=== PATIENT | female | born 1960 | race African-American/Black ===

== ENCOUNTER 2021-05-08 07:20 | Emergency (ER) | payer OTHER ==
[~2021-05-08 07:20] MED LIST: ALBU18HF2 IH; ALBUTEROL; P20 PO; SULF-165 PO
== END 2021-05-08 08:17 | disposition left against medical advice (07) ==
LOC: ER 07:20
DX: Z53.21 Procedure and treatment not carried out due to patient leaving prior to being seen by health care provider (principal)

== ENCOUNTER 2024-05-10 16:22 | Emergency (ER) | payer OTHER ==
[~2024-05-10] VITALS: Ht 160 cm; Wt 65.0 kg
[2024-05-10 16:25] VITALS: O2SAT 100
[2024-05-10 16:45] VITALS: TEMP 102.9; O2SAT 97
[2024-05-10 17:29] VITALS: BP 119/77; PULSE 127; RESP 18
[2024-05-10] MEDS: IBUPROFEN 600MG TABLET PO NR (17:29)
[2024-05-10] MEDS ORDERED: ACETAMINOPHEN 500MG TABLET PO ONE (19:15)
== END 2024-05-10 20:14 | disposition left against medical advice (07) ==
LOC: ER 16:22
DX: J11.1 Influenza due to unidentified influenza virus with other respiratory manifestations (principal); Z53.21 Procedure and treatment not carried out due to patient leaving prior to being seen by health care provider